=== PATIENT | female | born 1995 | race Caucasian/White ===

== ENCOUNTER 2018-01-06 10:45 | Observation (INO) | payer BC ==
[~2018-01-06] VITALS: Ht 157.5 cm; Wt 71.2 kg
[2018-01-06] VITALS (8 sets, daily range): BP systolic 106–120; BP diastolic 62–75
[2018-01-06] MEDS ORDERED: FUROSEMIDE INJ 10 MG/ML 2 ML VIAL IV PRN (12:15)
[2018-01-06] MEDS ORDERED: SODIUM CHLORIDE 0.9% 250ML 250 ML IV ONE (12:15)
[2018-01-06 12:57] LABS: HEMATOCRIT 26.1 % (34.2-44.1)
[2018-01-06 13:06] LABS: HEMOGLOBIN 6.9 g/dL (12.0-16.0)
[2018-01-06] MEDS ORDERED: SODIUM CHLORIDE 0.9% 250ML 250 ML ONE (16:02)
[2018-01-07 04:00] VITALS: BP 112/68
[2018-01-07 07:40] LABS: HEMATOCRIT 32.8 % (34.2-44.1); HEMOGLOBIN 9.3 g/dL (12.0-16.0)
[2018-01-07 09:18] VITALS: BP 112/68
== END 2018-01-07 09:29 | disposition home or self-care (01) ==
LOC: UNDOADMOB 11:52 → IMCU 11:52 → UNDODISOB 01-07 09:29
PROVIDERS: ADMIT Internal Medicine Gastroenterology; ATTEND Internal Medicine Gastroenterology
DX: D64.9 Anemia, unspecified (principal); K51.50 Left sided colitis without complications
CPT/HCPCS: 36415 ×2; 36430; 85014 ×2; 85018 ×2; 86850; 86900; 86920; G0378 ×2; J7050; P9016